=== PATIENT | male | born 1975 | race Caucasian/White ===

== ENCOUNTER 2021-01-11 15:13 | Emergency (ER) | payer OTHER ==
[2021-01-11 15:32] VITALS: BP 163/121; PULSE 64; RESP 16; TEMP 98.6
--- NOTE | 2021-01-11 16:12 | ED ---
General Adult HPI - General Chief complaint: Extremity Problem,Nontraumatic Stated complaint: Back Pain/Leg pain Time Seen by Provider: 01/11/21 15:43 Source: patient, RN notes reviewed Mode of arrival: ambulatory Limitations: no limitations - History of Present Illness Initial comments: 45-year-old male presents to the emergency room for a chief complaint of shocking pain. Patient reports for the past 16 months he has had pain that goes in shock waves throughout his whole body. States it starts in his feet goes up through his body. Patient denies having diabetes. Denies history of neuropathy. Patient has not seen his doctor for this in the past 8 months. Patient has no other complaints at this time including shortness of breath, chest pain, abdominal pain, nausea or vomiting, headache, or visual changes. - Related Data Home Medications Medication Instructions Recorded Confirmed Dextroamphetamine/Amphetamine 20 mg PO BID 09/27/15 09/27/15 [Adderall] Hydrocodone/Acetaminophen [[place] 1 each PO Q6HR PRN 09/27/15 09/27/15 7.5-325] Previous Rx's Medication Instructions Recorded HYDROcodone/APAP 5-325MG [Benton 5] 1 each PO Q6HR PRN #30 tab 09/27/15 Allergies Allergy/AdvReac Type Severity Reaction Status Date / Time No Known Allergies Allergy Verified 01/11/21 15:28 Review of Systems ROS Statement: Those systems with pertinent positive or pertinent negative responses have been documented in the HPI. ROS Other: All systems not noted in ROS Statement are negative. Past Medical History Past Medical History: Hypertension Additional Past Medical History / Comment(s): ADHD History of Any Multi-Drug Resistant Organisms: None Reported Additional Past Surgical History / Comment(s): WRIST LACERATION REPAIR; REPAIR OF HEAD LACERATION; SURGERY TO REPAIR PINCHED NERVE IN LEFT ELBOW; SEPTOPLASTY Past Anesthesia/Blood Transfusion Reactions: No Reported Reaction Past Psychological History: ADD/ADHD Smoking Status: Current every day smoker Past Alcohol Use History: None Reported Past Drug Use History: None Reported General Exam Limitations: no limitations General appearance: alert, in no apparent distress Head exam: Present: atraumatic, normal inspection Eye exam: Present: normal appearance, PERRL, EOMI. Absent: scleral icterus, conjunctival injection ENT exam: Present: normal exam, mucous membranes moist Neck exam: Present: normal inspection, full ROM. Absent: tenderness Respiratory exam: Present: normal lung sounds bilaterally. Absent: respiratory distress, wheezes Cardiovascular Exam: Present: regular rate, normal rhythm, normal heart sounds GI/Abdominal exam: Present: soft, normal bowel sounds. Absent: distended, tenderness, guarding, rebound, rigid Extremities exam: Present: other (Feet appear normal, DP pulses 2+.) Course Vital Signs 01/11/21 15:28 Temperature 98.6 F Pulse Rate 64 Respiratory 16 Rate Blood Pressure 163/121 O2 Sat by Pulse 100 Oximetry Medical Decision Making - Medical Decision Making Patient became frustrated when discussing his chronic pain and eloped from the emergency room. Likely experiencing neuropathy. I discussed this case with attending Dr. Garcia who agrees with this assessment and treatment plan. Disposition Clinical Impression: Neuropathy Disposition: Left Against Medical Advice Is patient prescribed a controlled substance at d/c from ED?: No Time of Disposition: 16:16
== END 2021-01-11 16:18 | disposition left against medical advice (07) ==
LOC: EC 15:13
DX: G62.9 Polyneuropathy, unspecified (principal); F90.9 Attention-deficit hyperactivity disorder, unspecified type; I10 Essential (primary) hypertension; F17.200 Nicotine dependence, unspecified, uncomplicated; Z79.899 Other long term (current) drug therapy; Z53.29 Procedure and treatment not carried out because of patient's decision for other reasons
CPT/HCPCS: 99282

== ENCOUNTER → 2021-02-28 | Outpatient (CLI) | payer OTHER ==
--- NOTE | 2021-02-28 13:49 | MR ---
EXAMINATION TYPE: MR shoulder RT wo con DATE OF EXAM: 02/28/2021 COMPARISON: None HISTORY: Rt shoulder pain TECHNIQUE: Multiplanar, multisequence imaging of the right shoulder is performed without contrast. FINDINGS: Rotator Cuff: Torn supraspinatus tendon is retracted to the level of the acromion, infraspinatus tend on also shows attenuation and partial full-thickness tear at the level of its insertion, there is flu id signal along the subscapularis lesser tendinous junction Acromioclavicular Joint: There is arthropathy change present, fluid is present in the subacromial sub deltoid bursa, there is a distal acromial spur Glenohumeral Joint: There is some motion present however the joint appears intact Labrum: The labrum appears grossly intact given limitation of non-arthrogram study. Biceps Tendon: Dyspnea placed from the bicipital groove, fluid is present along the tendon Bone marrow signal: Subchondral marrow signal changes present at the acromioclavicular joint Other: There is a joint effusion. IMPRESSION: Targeted rotator cuff with retraction, displaced long head of biceps tendon, correlate for impingemen t.
== END | disposition home or self-care (01) ==
LOC: RADMRIMAIN 08:37
PROVIDERS: ATTEND Internal Medicine
DX: M75.101 Unspecified rotator cuff tear or rupture of right shoulder, not specified as traumatic (principal); S46.119A Strain of muscle, fascia and tendon of long head of biceps, unspecified arm, initial encounter

== ENCOUNTER 2021-05-06 15:40 | Emergency (ER) | payer OTHER ==
[2021-05-06 16:01] VITALS: BP 126/79; PULSE 84; RESP 20; TEMP 98.8
--- NOTE | 2021-05-06 16:35 | XR ---
EXAMINATION TYPE: XR wrist complete RT DATE OF EXAM: 05/06/2021 COMPARISON: NONE HISTORY: Pain and swelling TECHNIQUE: 4 views FINDINGS: I see no fracture nor dislocation. Carpal bones are intact. Metacarpals are intact. There a re no erosions. There is no subluxation. IMPRESSION: Negative right wrist exam. No fracture.
--- NOTE | 2021-05-06 16:37 | XR ---
EXAMINATION TYPE: XR hand complete RT DATE OF EXAM: 05/06/2021 COMPARISON: NONE HISTORY: Pain TECHNIQUE: 3 views FINDINGS: Metacarpals are intact. There is mild spurring at the IP joint of the thumb. I see no erosi ons. There is no subluxation. There is no evidence of an acute fracture. IMPRESSION: Minor degenerative changes. No fracture seen.
--- NOTE | 2021-05-06 17:14 | ED ---
Upper Extremity HPI - General Chief Complaint: Extremity Injury, Upper Stated Complaint: rt wrist problem Time Seen by Provider: 05/06/21 17:00 Source: patient Mode of arrival: ambulatory Limitations: no limitations - History of Present Illness Initial Comments: 46-year-old male presents to emergency department with a chief complaint of right wrist pain. States this occurred today while he was painting. He states he felt his hand "lockup" like he was experiencing spasms in the hand. Reports the hand was in a flexed position for about 10 minutes before it gradually resolved. She denies any significant injury to the arm otherwise. He denies any numbness or tingling. States she does not have any symptoms at this time. Denies any paresthesias or weakness. - Related Data Home Medications Medication Instructions Recorded Confirmed Dextroamphetamine/Amphetamine 20 mg PO BID 09/27/15 09/27/15 [Adderall] Hydrocodone/Acetaminophen [[place] 1 each PO Q6HR PRN 09/27/15 09/27/15 7.5-325] Previous Rx's Medication Instructions Recorded HYDROcodone/APAP 5-325MG [Butler 5] 1 each PO Q6HR PRN #30 tab 09/27/15 Allergies Allergy/AdvReac Type Severity Reaction Status Date / Time No Known Allergies Allergy Verified 05/06/21 16:01 Review of Systems ROS Statement: Those systems with pertinent positive or pertinent negative responses have been documented in the HPI. ROS Other: All systems not noted in ROS Statement are negative. Past Medical History Past Medical History: Diabetes Mellitus, Hypertension, Rheumatoid Arthritis (RA) Additional Past Medical History / Comment(s): ADHD History of Any Multi-Drug Resistant Organisms: None Reported Past Surgical History: Orthopedic Surgery Additional Past Surgical History / Comment(s): WRIST LACERATION REPAIR; REPAIR OF HEAD LACERATION; SURGERY TO REPAIR PINCHED NERVE IN LEFT ELBOW; SEPTOPLASTY Past Anesthesia/Blood Transfusion Reactions: No Reported Reaction Past Psychological History: ADD/ADHD Smoking Status: Current every day smoker Past Alcohol Use History: None Reported Past Drug Use History: None Reported General Exam Limitations: no limitations General appearance: alert, in no apparent distress Head exam: Present: atraumatic, normocephalic, normal inspection Eye exam: Present: normal appearance, PERRL, EOMI Pupils: Present: normal accommodation ENT exam: Present: normal exam, normal oropharynx, mucous membranes moist Neck exam: Present: normal inspection, full ROM. Absent: tenderness Respiratory exam: Present: normal lung sounds bilaterally. Absent: respiratory distress, wheezes, rales, rhonchi, stridor, chest wall tenderness, accessory muscle use Cardiovascular Exam: Present: regular rate, normal rhythm, normal heart sounds. Absent: systolic murmur, diastolic murmur Extremities exam: Present: normal inspection, full ROM, normal capillary refill, other (Palpable ulnar and radial pulses bilaterally). Absent: tenderness, pedal edema, joint swelling, calf tenderness Back exam: Present: normal inspection, full ROM. Absent: tenderness, CVA tenderness (R), CVA tenderness (L) Neurological exam: Present: alert, oriented X3 Psychiatric exam: Present: normal affect, normal mood Skin exam: Present: warm, dry, intact, normal color Course Vital Signs 05/06/21 15:56 Temperature 98.8 F Pulse Rate 84 Respiratory 20 Rate Blood Pressure 126/79 O2 Sat by Pulse 96 Oximetry Medical Decision Making - Medical Decision Making 46-year-old male presents to emergency Department with a chief complaint of right arm pain. Physical examination is unremarkable. Patient is neurovascularly intact. X-rays of the hand and wrist are negative. Patient is to follow-up with orthopedics. Return parameters discussed. Case discussed with Disposition Clinical Impression: Right wrist pain Disposition: HOME SELF-CARE Condition: Stable Instructions (If sedation given, give patient instructions): Wrist Injury (ED) Additional Instructions: Please return to the Emergency Department if symptoms worsen or any other concerns. Is patient prescribed a controlled substance at d/c from ED?: No Referrals: Vishal Franco MD [Primary Care Provider] - 1-2 days Time of Disposition: 17:14
== END 2021-05-06 17:19 | disposition home or self-care (01) ==
LOC: EC 15:40
DX: M25.531 Pain in right wrist (principal); E11.9 Type 2 diabetes mellitus without complications; I10 Essential (primary) hypertension; M06.9 Rheumatoid arthritis, unspecified; F17.200 Nicotine dependence, unspecified, uncomplicated
CPT/HCPCS: 99283

== ENCOUNTER 2021-06-09 07:12 | Day surgery (SDC) | payer OTHER ==
--- NOTE | 2021-06-08 09:29 | HP ---
HISTORY AND PHYSICAL CHIEF COMPLAINT: Right shoulder pain. HISTORY OF PRESENT ILLNESS: The patient is a 46-year-old, right-hand dominant, unemployed gentleman who presents with right shoulder pain for the past 16 years. He notes he hurt himself in a tough man contest. He is having pain with overhead use and at night. He notes it has progressed. He has tried previous treatments without much relief. He notes daily pain and limitation. PAST MEDICAL HISTORY: Significant for hypertension and type 2 diabetes. PAST SURGICAL HISTORY: Significant for right hand surgery in addition to previous elbow surgery. CURRENT MEDICATIONS: Diclofenac, Lomita, losartan, and metformin. ALLERGIES: He denies drug allergies. FAMILY HISTORY: Significant for cancer. SOCIAL HISTORY: Significant for current tobacco use. REVIEW OF SYSTEMS: Sixteen-point review of systems otherwise reviewed and is noncontributory. PHYSICAL EXAMINATION: On examination, the patient is approximately 5 foot 7, 225 pounds of endomorphic habitus. HEENT exam is nonfocal. Neck is supple. On examination of his right shoulder, active range of motion forward elevation 150 degrees, external rotation with arm at side 55 degrees, internal rotation to L2. Motor strength is 4+/5 for abduction and external rotation. Impingement test, Neer test, and Speed test are positive. His distal neurovascular exam appears intact in the right upper extremity. MRI report right shoulder 02/28/2021 shows evidence of retracted rotator cuff tear along with biceps dislocation. IMPRESSION: 1. Right shoulder symptomatic rotator cuff tear. 2. Right proximal biceps tendinopathy with dislocation. RECOMMENDATIONS: I talked to the patient at length regarding his condition and treatment options. At this point, he opts to proceed with surgery. We will plan to proceed with arthroscopic evaluation with probable subacromial decompression, rotator cuff repair, and possible biceps tenotomy. We will likely perform that as an outpatient procedure. Risks and benefits were discussed at length in layman's terms. MMODL / IJN: [id number] /
[2021-06-09] MEDS ORDERED: SCOPOLAMINE 1.5MG/72HR PATCH TRANSDERM ONE (07:33)
[2021-06-09] MEDS ORDERED: HYDROmorphone 0.5 MG/0.5 ML SYRINGE IVP PRN (07:33)
[2021-06-09] MEDS ORDERED: MIDAZOLAM 2 MG/2 ML VIAL IV PRN (07:33)
[2021-06-09] MEDS ORDERED: LACTATED RINGERS 1,000 ML IV SCH (07:33)
[2021-06-09] MEDS ORDERED: ONDANSETRON 4 MG/2 ML VIAL ONE (07:50)
[2021-06-09 07:51] LABS: Glucose,Whole Blood 125 mg/dL (75-99)
[2021-06-09] MEDS: DEXAMETHASONE SOD PHOSPHATE 4 MG/ML 1 ML VIAL IV ONE ×2 (08:15→08:30)
[2021-06-09] MEDS: ONDANSETRON 4 MG/2 ML VIAL IVP ONE ×2 (08:15→08:30)
[2021-06-09] MEDS ORDERED: MIDAZOLAM 2 MG/2 ML VIAL IVP ONE (08:20)
[2021-06-09] MEDS ORDERED: fentaNYL (PF) 50 MCG/ML 2 ML AMP IVP ONE (08:22)
--- NOTE | 2021-06-09 08:35 | P.ANPRN ---
Procedure Note - Anesthesia - Nerve Block Performed Right Interscalene Single Time Out Performed: Yes Date of Procedure: 06/09/21 Procedure Start Time: : Procedure Stop Time: : Location of Patient: PreOp Indication: Requested by Surgeon Specifically requested for management of pain by DrConcepción: Gee Dowling Sedation Type: Sedate with meaningful contact maintained Preparation: Sterile Prep Position: Supine Needle Types: Pajunk Needle Gauge: 21 Ultrasound used to visualize needle placement: Yes Ultrasound used to observe medication spread: Yes Injectate: 0.5% Ropivacaine (see comment for volume) (20 ml plus Dexamethason) Blood Aspirated: No Pain Paresthesia on Injection Noted: No Resistance on Injection: Normal Image Stored and Saved: Yes Events: Uneventful and Well Tolerated
[2021-06-09] MEDS ORDERED: PROPOFOL 10 MG/ML 20 ML VIAL IV ONE (09:24)
[2021-06-09] MEDS ORDERED: SUCCINYLCHOLINE CHLORIDE 100 MG/5 ML SYR IV ONE (09:24)
[2021-06-09] MEDS ORDERED: ROPIVACAINE 5 MG/ML 30 ML VIAL ONE (09:24)
[2021-06-09] MEDS ORDERED: LIDOCAINE 1% INJ 10MG/ML (20 ML MDV) ONE (09:24)
[2021-06-09] MEDS ORDERED: MIDAZOLAM 2 MG/2 ML VIAL ONE (09:24)
[2021-06-09] MEDS ORDERED: DEXAMETHASONE SOD PHOSPHATE 4 MG/ML 1 ML VIAL ONE (09:24)
[2021-06-09] MEDS ORDERED: HYDROmorphone (PF) 1 MG/ML ONE (09:24)
[2021-06-09] MEDS ORDERED: fentaNYL (PF) 50 MCG/ML 2 ML AMP ONE (09:24)
[2021-06-09] MEDS ORDERED: DEXAMETHASONE SOD PHOSPHATE 10 MG/ML 1 ML VIAL ONE (09:24)
[2021-06-09] MEDS ORDERED: EPINEPHrine (PF) 1 ML in SODIUM CHLORIDE 0.9% IRRIGATIO 3,000 ML IRRIGATION ONE ×8 (09:29)
[2021-06-09] MEDS ORDERED: LACTATED RINGERS 1,000 ML IV ONE (11:03)
--- NOTE | 2021-06-09 11:32 | P.OP ---
Date of Procedure: 06/09/21 Preoperative Diagnosis: Symptomatic right rotator cuff tear Postoperative Diagnosis: 4 cm rotator cuff tear, high-grade partial-thickness tear/subluxation of the long head of the biceps, acromioclavicular joint arthritis Procedure(s) Performed: Right shoulder arthroscopic subacromial decompression/biceps tenotomy/distal clavicular resection/rotator cuff repair Implants: Arthrex 4.75 mm swivel lock anchor 2, 5.5 mm swivel lock anchor 2 Anesthesia: PERLAA, regional Surgeon: Gee Dowling Reeler Operator #1: Alpesh Silverio Estimated Blood Loss (ml): 10 Pathology: none sent Condition: stable Disposition: PACU Indications for Procedure: The patient's 46-year-old male who presents with a long-standing history of progressive right shoulder pain despite conservative measures. A discussion the risks and benefits of operative intervention versus continued conservative measures was made with patient. He opted to proceed with surgery. Operative risks to include infection, neurovascular injury, development of blood clots, possible incomplete resolution of symptoms, possible tendon rerupture, possible postoperative stiffness and need for subsequent procedures was discussed. Informed consent was obtained. Operative Findings: As below Description of Procedure: The patient was brought to the operating room, and after induction of general anesthesia was placed in a beachchair position. A preoperative interscalene block was placed for postoperative analgesia. I examined the right shoulder. There was no gross block to passive motion or gross glenohumeral instability. The 8 upper extremity was prepped and draped in normal fashion. The bony outlines the acromion, distal clavicle, and coracoid process were outlined with a skin marker. The glenohumeral joint was inflated with 50 mL of saline utilizing a spinal needle from posterior approach. A posterior portal was made through a 5 mm skin incision 1 cm medial and inferior to the posterior lateral border time. A blunt trocar was used to easily into the joint. Diagnostic arthroscopy was performed. An anterior portal was made just lateral to the coracoid process entering the joint above the subscapularis tendon. The subscapularis tendon appeared to be intact. Anterior labrum was intact. The inferior recess was inspected. The posterior labrum was intact. There was a high-grade partial-thickness tear of the long head of the biceps involving interarticular portion, along with medial subluxation. It was elected to proceed with release at this point. This was released from the superior labrum with electrocautery and was allowed to retract to the bicipital groove. On inspection the rotator cuff, a full-thickness tear involving the infraspinatus and supraspinatus with mild retraction was noted. The arthroscope was placed into the subacromial space. A lateral portal was made 2 centimeters inferior to the anterior lateral border of the acromion. The rotator cuff was then mobilized with a traction suture. This was then brought back to the greater tuberosity. The soft tissue on the undersurface of the acromion was debrided with a motorized shaver and electrocautery clearly defining the anterior medial and lateral borders as well as the distal clavicle. An anterior inferior acromioplasty was performed with a motorized maddy starting anterolateral, then extending this posteriorly, then extending this medially. I converted to a flat acromion and this was verified in the posterior and lateral viewing portals. Acromioclavicular joint arthritis along with subacromial impingement was noted therefore the distal 4 mm of clavicle was resected with a motorized bur. The greater tuberosity was lightly decorticating with a shaver down to a bleeding bony surface. An accessory superior lateral portals made just off the lateral edge of the acromion for anchor placement. 2 anchors were then placed just off the articular surface with the appropriate starting awl. 4.75 mm anchors prel oaded with #2 fiber tape were placed. Good purchase was obtained. These fiber tapes were then passed the rotator cuff with a scorpion suture passer. A lateral row was created crisscrossing these tapes. 5.5 mm swivel lock anchors x2 were placed laterally. Good purchase was obtained. Final arthroscopic view showed adequate compression at the footprint. The arthroscope was then removed. The portals were closed with simple 3-0 nylon sutures. A sterile dressing was applied in addition to an abductor brace. The patient was then awoken from general anesthesia and transferred to recovery room in good condition. Blood loss was estimated at 10 mL. No complications were incurred. Sponge and needle counts were correct in the case. Alpesh BOYER assisted and the major components of the case to include arm positioning, anchor placement, and rotator cuff repair.
[2021-06-09 11:41] VITALS: TEMP 97
[2021-06-09 12:18] VITALS: RESP 16
[2021-06-09] MEDS ORDERED: HYDROcodone/APAP 10-325MG 1 EACH TAB ONE (12:38)
[2021-06-09] MEDS ORDERED: HYDROcodone/APAP 10-325MG 1 EACH TAB PO ONE (12:39)
[2021-06-09 13:11] VITALS: BP 142/89; PULSE 75
== END 2021-06-09 13:56 | disposition home or self-care (01) ==
LOC: OR 07:12
PROVIDERS: ATTEND Orthopaedic Surgery
DX: S46.011A Strain of muscle(s) and tendon(s) of the rotator cuff of right shoulder, initial encounter (principal); S43.491A Other sprain of right shoulder joint, initial encounter; X58.XXXA Exposure to other specified factors, initial encounter; M25.511 Pain in right shoulder; I10 Essential (primary) hypertension; E11.8 Type 2 diabetes mellitus with unspecified complications; Z98.890 Other specified postprocedural states; Z80.9 Family history of malignant neoplasm, unspecified; F17.210 Nicotine dependence, cigarettes, uncomplicated; F90.9 Attention-deficit hyperactivity disorder, unspecified type; M06.9 Rheumatoid arthritis, unspecified; K21.9 Gastro-esophageal reflux disease without esophagitis; Z79.84 Long term (current) use of oral hypoglycemic drugs; Z79.891 Long term (current) use of opiate analgesic; Z79.899 Other long term (current) drug therapy
CPT/HCPCS: 64415; 76942; 29826; 29827; C1713 ×3; C1894; J2250; J1100; J0690; J2405; J0171; J2001; J3010; J1170 ×2; J2795; J0330; J2704

== ENCOUNTER → 2022-01-10 | Outpatient (CLI) | payer OTHER ==
--- NOTE | 2022-01-10 11:56 | FL ---
EXAMINATION TYPE: FL barium swallow w video DATE OF EXAM: 01/10/2022 CLINICAL HISTORY: 46 year-old male R13.10, unspecified Dysphagia. Patient with residual sensation of sticking. Reports nasal reflux. TECHNIQUE: Deglutition study is performed utilizing thin liquid barium, honey and nectar thick liqui d barium, barium thick applesauce, and barium coated cracker. Total fluoroscopy time: 1 minute 45 seconds. Total images: None. Real-time fluoroscopy support was provided to speech pathology. COMPARISON: None. FINDINGS: The oral and pharyngeal phases show satisfactory initiation and propagation with all modalities teste d. Normal mastication is seen with solid modalities tested. There is no evidence of penetration or aspiration with any modality tested. There are mild vallecular residuals with solid consistency. The re is degenerative disc disease with anterior endplate spondylosis at C6-C7 that impresses onto the b ack wall of the cervical esophagus causing mild narrowing but no obstruction to any of the consistenc ies tested. IMPRESSION: 1. No penetration or aspiration. 2. Mild vallecular residuals with solid consistency. 3. C6-C7 anterior endplate spondylosis impresses onto the back wall of the cervical esophagus and cau ses mild narrowing but without any obstruction. Please refer to speech therapist notes for further details if necessary.
== END | disposition home or self-care (01) ==
LOC: RADFLMAIN 10:45
PROVIDERS: ATTEND Psychiatry & Neurology Neurology
DX: R13.10 Dysphagia, unspecified (principal); M47.812 Spondylosis without myelopathy or radiculopathy, cervical region
CPT/HCPCS: 74230

== ENCOUNTER 2022-09-14 14:10 | Emergency (ER) | payer OTHER ==
[2022-09-14 14:25] VITALS: TEMP 98.1
[2022-09-14] MEDS ORDERED: HYDROmorphone 0.5 MG/0.5 ML SYRINGE IM STA ×2 (14:40→16:42)
[2022-09-14] MEDS ORDERED: DEXAMETHASONE SOD PHOSPHATE 10 MG/ML 1 ML VIAL IM STA (14:40)
--- NOTE | 2022-09-14 15:07 | XR ---
EXAMINATION TYPE: XR lumbar spine 2 or 3V DATE OF EXAM: 09/14/2022 COMPARISON: None HISTORY: Pain TECHNIQUE: 3 view lumbar spine FINDINGS: There are 5 lumbar-type vertebral bodies. The pedicles are intact. There is mild diffuse na rrowing to the L4-5 disc space. Spondylosis is present at L3 and L4. Mild wedge deformity of L1 is pr esent of indeterminate age. This may have been present on the lateral chest film of 12/09/2021. IMPRESSION: 1. Mild wedge deformity of L1 is most likely old. 2. Mild degenerative disc changes L4-5
[2022-09-14] MEDS ORDERED: CYCLOBENZAPRINE 10 MG TAB PO STA (15:37)
--- NOTE | 2022-09-14 15:43 | ED ---
Back Pain HPI - General Chief Complaint: Back Pain/Injury Stated Complaint: Back Pain Time Seen by Provider: 09/14/22 14:33 Source: patient, family, RN notes reviewed Limitations: no limitations - History of Present Illness Initial Comments: This is a 47-year-old male who presents to the emergency department for lower back pain. States that when he went to get out of bed this morning, he experienced a severe onset of lower back pain. He was unable to walk afterwards, and states that he is experiencing excruciating pain and is hardly able to walk at all. He does have chronic pain in his neck, and follows up with neurology for trigger point injections and epidurals. He does plan to follow up with them early next week. He has never had problems with his lower back like he is today. Denies any loss of bowel or bladder control or saddle anesthesia. He does have problems with neuropathy in his bilateral lower extremities, but is unsure if this is any worse in relation to the pain. Denies any fevers, chills, sore throat, cough, dyspnea, chest pain, palpitations, abdominal pain, nausea, vomiting, diarrhea, or headaches. MD Complaint: back pain Similar Symptoms Previously: No Place: home - Related Data Home Medications Medication Instructions Recorded Confirmed Dextroamphetamine/Amphetamine 20 mg PO BID 09/27/15 06/09/21 [Adderall] Hydrocodone/Acetaminophen [[place] 1 each PO Q6HR PRN 09/27/15 06/09/21 7.5-325] Diclofenac Sodium 50 mg PO DAILY 06/09/21 06/09/21 Losartan [Cozaar] 50 mg PO DAILY 06/09/21 06/09/21 metFORMIN HCL [Glucophage] 500 mg PO TID 06/09/21 06/09/21 Previous Rx's Medication Instructions Recorded HYDROcodone/APAP 10-325MG [[place] 1 tab PO Q6HR PRN #28 tab 06/09/21 10-325] Artificial Tears-Hypromellose 1 drops LEFT EYE TID #20 ml 12/09/21 [Artificial Tear Drops] predniSONE See Taper PO DAILY #40 tab 12/09/21 valACYclovir HCL [Valtrex] 1,000 mg PO TID 10 Days #60 tablet 12/09/21 Lidocaine 5% Oint [Xylocaine 5% 1 applic TOPICAL Q6H PRN #30 gm 09/14/22 Oint] Orphenadrine [Norflex] 100 mg PO Q12H PRN #20 tab 09/14/22 predniSONE 50 mg PO DAILY 5 Days #5 tab 09/14/22 Allergies Allergy/AdvReac Type Severity Reaction Status Date / Time No Known Allergies Allergy Verified 09/14/22 14:25 Review of Systems ROS Statement: Those systems with pertinent positive or pertinent negative responses have been documented in the HPI. ROS Other: All systems not noted in ROS Statement are negative. Past Medical History Past Medical History: Diabetes Mellitus, Hypertension, Rheumatoid Arthritis (RA) Additional Past Medical History / Comment(s): ADHD History of Any Multi-Drug Resistant Organisms: None Reported Past Surgical History: Orthopedic Surgery Additional Past Surgical History / Comment(s): WRIST LACERATION REPAIR; REPAIR OF HEAD LACERATION; SURGERY TO REPAIR PINCHED NERVE IN LEFT ELBOW; SEPTOPLASTY Past Anesthesia/Blood Transfusion Reactions: No Reported Reaction Past Psychological History: ADD/ADHD Smoking Status: Current every day smoker Past Alcohol Use History: None Reported Past Drug Use History: None Reported General Exam Limitations: no limitations General appearance: alert, in distress Head exam: Present: atraumatic, normocephalic, normal inspection Respiratory exam: Present: normal lung sounds bilaterally. Absent: respiratory distress, wheezes, rales, rhonchi, stridor Cardiovascular Exam: Present: regular rate, normal rhythm, normal heart sounds. Absent: systolic murmur, diastolic murmur, rubs, gallop, clicks Back exam: Present: normal inspection. Absent: full ROM (secondary to pain), tenderness Neurological exam: Present: alert, oriented X3, CN II-XII intact Psychiatric exam: Present: normal affect, normal mood Skin exam: Present: warm, dry, intact, normal color. Absent: rash Course Vital Signs 09/14/22 14:23 Temperature 98.1 F Pulse Rate 98 Respiratory 20 Rate Blood Pressure 178/89 O2 Sat by Pulse 99 Oximetry Medical Decision Making - Medical Decision Making This is a 47-year-old male who presents the emergency department for lower back pain. Patient was given IM dilauded and Decadron which he states was beneficial. Lumbar spine x-ray obtained revealing multiple degenerative changes and a wedge deformity of indeterminate age. Given these findings, a computed tomography scan of the lumbar spine was subsequently obtained. This revealed multiple areas of degenerative changes with no acute findings to account for today's symptoms. Current pain is likely related to an acute muscle strain. Prescription for prednisone provided to be taken for 5 days. Norflex prescribed to be taken as needed for pain and muscle spasms. He is instructed to take the first dose at night until he knows how it affects him, as it may be sedating. Lidocaine cream prescribed as well for additional relief, which can be applied 3-4 times daily. Patient is already on daily narcotic pain medication and no additional controlled substances will be prescribed. Also recommended ice or heat for additional relief and reminded him to follow up with neurology for further evaluation and discussion of treatment options. Return precautions reviewed in depth, the patient is instructed to return to the emergency department with any new, worsening, or concerning symptoms, specially develops loss of bowel/bladder control or saddle anesthesia. Patient verbalized understanding. This case was discussed in detail with the attending ED physician. Presentation, findings, and treatment plan discussed in detail as well. - Radiology Data Radiology results: report reviewed, image reviewed Disposition Clinical Impression: Lower back pain Disposition: HOME SELF-CARE Instructions (If sedation given, give patient instructions): Acute Low Back Pain (ED) Additional Instructions: Return to the emergency department with any new, worsening, or concerning symptoms. Take the prednisone daily for 5 days. You can take the Norflex up to twice daily as needed for pain or muscle spasms, take your first dose at night until you know how it affects you, as it may be sedating. The lidocaine cream can be applied up to 4 times daily for additional relief. You can also try applying ice or heat. Make sure to follow up with your neurologist for further management of symptoms. Prescriptions: Orphenadrine [Norflex] 100 mg PO Q12H PRN #20 tab PRN Reason: Pain predniSONE 50 mg PO DAILY 5 Days #5 tab Lidocaine 5% Oint [Xylocaine 5% Oint] 1 applic TOPICAL Q6H PRN #30 gm PRN Reason: Pain Is patient prescribed a controlled substance at d/c from ED?: No Referrals: Virgilio Reza MD [Primary Care Provider] - 1-2 days
--- NOTE | 2022-09-14 16:37 | CT ---
Exam: CT lumbar spine wo con DATE OF EXAM: 09/14/2022 COMPARISON: Radiograph same day HISTORY: 47-year-old male Low back pain, limited ambulation, leg numbness. TECHNIQUE: Contiguous axial scanning of the lumbar spine without IV contrast. Coronal and sagittal re constructions performed. CT DLP: 1317.6 mGycm Automated exposure control for dose reduction was used. FINDINGS: Nonspecific 2.2 cm hypodense lesion anterior midpole right kidney. Ultrasound can further evaluate. Mild multilevel degenerative disc disease with anterior endplate spondylosis and disc bulging. There is some calcified posterior disc bulging at L4-L5 noted which contribute to mild spinal canal narrowi ng. 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 No high-grade spinal canal stenosis is seen. On the left, changes contribute to a mild neuroforaminal stenosis at L4-L5. On the right, changes result in a mild spinal canal stenosis at L4-L5. Vertebral body heights are preserved and alignment is maintained. IMPRESSION: 1. MILD ENDPLATE SPONDYLOSIS AND DEGENERATIVE DISC DISEASE THROUGHOUT. 2. THERE IS A PROMINENT CENTRAL DISC OSTEOPHYTE COMPLEX AT L4-L5 WHICH MILDLY NARROWS THE SPINAL LETTY L AND CONTRIBUTES TO MILD BILATERAL NEURAL FORAMINAL STENOSIS. 3. NO HIGH-GRADE CANAL COMPROMISE OR FORAMINAL STENOSIS IS SEEN BY CT. 4. NONEMERGENT RENAL ULTRASOUND TO FURTHER ASSESS A 2.2 CM LESION MID RIGHT KIDNEY, POSSIBLE CYST.
[2022-09-14 17:03] VITALS: BP 138/88; PULSE 86; RESP 18
== END 2022-09-14 17:03 | disposition home or self-care (01) ==
LOC: EC 14:10
DX: M54.50 Low back pain, unspecified (principal); F17.200 Nicotine dependence, unspecified, uncomplicated; E11.9 Type 2 diabetes mellitus without complications; I10 Essential (primary) hypertension; Z79.84 Long term (current) use of oral hypoglycemic drugs; Z79.899 Other long term (current) drug therapy
CPT/HCPCS: 72100; 72131; 99284; 96372; J1100; J1170

== ENCOUNTER 2023-12-20 05:56 | Day surgery (SDC) | payer OTHER ==
[2023-12-20] MEDS ORDERED: LIDOCAINE 1% (10MG/ML) FOR IV START INTRADERMA PRN (06:06)
[2023-12-20] MEDS ORDERED: LACTATED RINGERS 1,000 ML IV SCH (06:06)
[2023-12-20] MEDS ORDERED: INSULIN ASPART (NovoLOG) 100 UNIT/ML VIAL SQ ONE (06:40)
[2023-12-20 06:49] VITALS: TEMP 97
[2023-12-20] MEDS ORDERED: PROPOFOL 10 MG/ML 20 ML VIAL IV ONE (07:00)
[2023-12-20] MEDS ORDERED: LIDOCAINE 1% INJ 10MG/ML (20 ML MDV) ONE (07:00)
[2023-12-20 07:02] LABS: Glucose,Whole Blood 242 mg/dL (70-110)
--- NOTE | 2023-12-20 07:19 | P.PCN ---
Date of Procedure: 12/20/23 Procedure(s) Performed: BRIEF HISTORY: Patient is a 48-year-old, pleasant, white male scheduled for an upper endoscopy as a part of evaluation of intermittent dysphagia to solids for the last 1 year duration. Recent examined progressively getting worse and has been having trouble with liquids as well as solids and passive regurgitation. He had a modified barium swallow done that showed evidence of cervical spondylosis causing extrinsic compression in the proximal cervical esophagus with mild narrowing.. PROCEDURE PERFORMED: Esophagogastroduodenoscopy with biopsy. PREOPERATIVE DIAGNOSIS: Dysphagia to solids and liquids of 1 year duration. IV sedation per anesthesia. PROCEDURE: After informed consent was obtained, the patient was brought into the endoscopy unit. IV sedation was administered by Anesthesia under continuous monitoring. Initially the Olympus GIF-140 video endoscope was inserted into the mouth. Esophagus intubated without any difficulty. It was gradually advanced into the stomach and duodenum and carefully examined. The bulb and the second part of the duodenum appeared normal. The scope at this time was withdrawn to the stomach, adequately insufflated with air, and upon careful examination, mucosa of the antrum, had mild gastritis and biopsies were done from this area. There was small amount of retained solid food in the stomach suggestive of diabetic gastroparesis. Rest of the body, cardia and the fundus appeared normal. The scope was then withdrawn into the esophagus. The GE junction was located at 39 cm from the incisors. The esophagus appeared normal. There were no erosions or ulcerations seen. The proximal cervical esophagus was carefully examined and no evidence of extrinsic compression, esophageal stricture or Zenker's diverticulum identified. Biopsies were done from the distal esophagus and the patient tolerated the procedure well. IMPRESSION: 1. Normal-appearing esophagus with no evidence of esophagitis or esophageal stricture. No extrinsic compression noted in the proximal esophagus. 2. With retained food in the stomach suggestive of diabetic gastroparesis 3. Mild antral gastritis. RECOMMENDATIONS: The findings of this examination were discussed with the patient as well as his family. He was advised to consider small frequent meals because of diabetic gastroparesis and await biopsy results. Follow up in office in 2 weeks..
[2023-12-20 07:37] VITALS: BP 130/78; PULSE 90; RESP 16
== END 2023-12-20 08:01 | disposition home or self-care (01) ==
LOC: ORWHC2ENDO 05:56
PROVIDERS: ATTEND Internal Medicine Gastroenterology
DX: K29.50 Unspecified chronic gastritis without bleeding (principal); I10 Essential (primary) hypertension; E78.5 Hyperlipidemia, unspecified; E11.9 Type 2 diabetes mellitus without complications; F90.9 Attention-deficit hyperactivity disorder, unspecified type; M19.90 Unspecified osteoarthritis, unspecified site; G25.81 Restless legs syndrome; F17.210 Nicotine dependence, cigarettes, uncomplicated; Z79.85 Long-term (current) use of injectable non-insulin antidiabetic drugs; Z79.51 Long term (current) use of inhaled steroids; Z79.899 Other long term (current) drug therapy; Z79.1 Long term (current) use of non-steroidal anti-inflammatories (NSAID)
CPT/HCPCS: 88305; 88342; 43239; J2001; J2704

== ENCOUNTER 2024-04-18 15:18 | Emergency (ER) | payer OTHER ==
--- NOTE | 2024-04-18 15:30 | ED ---
Neuro HPI - General Chief Complaint: Neuro Symptoms/Deficit Stated Complaint: R side facial drooping for 4 days Time Seen by Provider: 04/18/24 15:27 Source: patient, RN notes reviewed, old records reviewed Mode of arrival: ambulatory Limitations: no limitations - History of Present Illness Is the patient presenting with stroke symptoms?: Yes -: days(s) Initial Comments: This is a 49-year-old male to the ER for evaluation patient presenting with significant weakness to the right side of his face this is noted to be starting 4 days ago. History of Rmoo's palsy with resolution. Patient has mild headache currently but no other complaints Location: right face History of same: Yes Place: home Severity: moderate Quality: weak, numb, tingling Improves With: none Worsens With: none On Anticoagulants: Yes Associated Symptoms: denies other symptoms Treatments Prior to Arrival: none - Related Data Home Medications: Home Medications Medication Instructions Recorded Confirmed Hydrocodone/Acetaminophen [[place] 1 each PO Q8H PRN 09/27/15 12/13/23 7.5-325] Diclofenac Sodium 50 mg PO BID PRN 06/09/21 12/13/23 Losartan [Cozaar] 50 mg PO DAILY 06/09/21 12/13/23 metFORMIN HCL [Glucophage] 500 mg PO TID 06/09/21 12/13/23 Albuterol Inhaler [Ventolin Hfa 1 - 2 puff INHALATION Q6H PRN 12/13/23 12/13/23 Inhaler] Atorvastatin [Lipitor] 40 mg PO DAILY 12/13/23 12/13/23 Dulaglutide [Trulicity] 0.75 mg SQ TH 12/13/23 12/13/23 Ondansetron Odt [Zofran Odt] 4 mg PO Q6H PRN 12/13/23 12/13/23 rOPINIRole HCL [Requip] 0.25 mg PO HS 12/13/23 12/13/23 tiZANidine [Zanaflex] 4 mg PO BID PRN 12/13/23 12/13/23 Previous Rx's Medication Instructions Recorded predniSONE [Deltasone] 60 mg PO DAILY #21 tab 04/18/24 valACYclovir HCL [Valtrex] 1,000 mg PO TID #21 tablet 04/18/24 Allergies/Adverse Reactions: Allergies Allergy/AdvReac Type Severity Reaction Status Date / Time No Known Allergies Allergy Verified 04/18/24 15:25 Review of Systems ROS Statement: Those systems with pertinent positive or pertinent negative responses have been documented in the HPI. ROS Other: All systems not noted in ROS Statement are negative. General Exam Limitations: no limitations General appearance: alert, in no apparent distress Head exam: Present: atraumatic, normocephalic, normal inspection Eye exam: Present: normal appearance, PERRL, EOMI. Absent: scleral icterus, conjunctival injection, periorbital swelling ENT exam: Present: normal exam, mucous membranes moist Neck exam: Present: normal inspection. Absent: tenderness, meningismus, lymphadenopathy Respiratory exam: Present: normal lung sounds bilaterally. Absent: respiratory distress, wheezes, rales, rhonchi, stridor Cardiovascular Exam: Present: regular rate, normal rhythm, normal heart sounds. Absent: systolic murmur, diastolic murmur, rubs, gallop, clicks GI/Abdominal exam: Present: soft, normal bowel sounds. Absent: distended, tenderness, guarding, rebound, rigid Extremities exam: Present: normal inspection, full ROM, normal capillary refill. Absent: tenderness, pedal edema, joint swelling, calf tenderness Back exam: Present: normal inspection Neurological exam: Present: alert, oriented X3, CN II-XII intact Psychiatric exam: Present: normal affect, normal mood Skin exam: Present: warm, dry, intact, normal color. Absent: rash Stroke MDM - NIH Stroke Scale 1a. Level of Consciousness: (0) alert 1b. LOC Questions: (0) answers correctly 1c. LOC Commands: (0) performs tasks correctly 2. Best Gaze: (0) normal 3. Visual: (0) no visual loss 4. Facial Palsy: (3) complete paralysis 5a. Motor Arm Left: (0) no drift 5b. Motor Arm Right: (0) no drift 6a. Motor Leg Left: (0) no drift 6b. Motor Leg Right: (0) no drift 7. Limb Ataxia: (0) absent 8. Sensory: (0) normal 9. Best Language: (1) mild/moderate aphasia 10. Dysarthria: (1) mild/moderate dysarthria 11. Extinction/Inattention: (0) no abnormality - Thrombolytic Inclusion/Exclusion Thrombolytic Exclusion Criteria: Symptom Onset > 4.5 Hours (4 days) - Medical Decision Making 49 male to the ER for evaluation today. Patient presents today for evaluation regards to right-sided facial weakness with positive Romo's palsy on exam. Patient symptoms are unchanged here in the ER but is discharged home Past Medical History Past Medical History: Diabetes Mellitus, GERD/Reflux, Hyperlipidemia, Hypertension, Musculoskeletal Disorder, Osteoarthritis (OA), Rheumatoid Arthritis (RA) Additional Past Medical History / Comment(s): dysphagia w/pills, food etc, neuropathy, restless leg, back & neck pain, abd. pain frequently History of Any Multi-Drug Resistant Organisms: None Reported Past Surgical History: Orthopedic Surgery Additional Past Surgical History / Comment(s): WRIST LACERATION REPAIR; REPAIR OF HEAD LACERATION; SURGERY TO REPAIR PINCHED NERVE IN LEFT ELBOW; SEPTOPLASTY, right shoulder rotator cuff repair Past Anesthesia/Blood Transfusion Reactions: No Reported Reaction, Family History of Problems w/ Anesthesia Additional Past Anesthesia/Blood Transfusion Reaction / Comment(s): father very slow to come around after surg. Past Psychological History: ADD/ADHD Smoking Status: Current every day smoker Past Alcohol Use History: None Reported Past Drug Use History: None Reported Course Vital Signs 04/18/24 04/18/24 15:24 16:42 Temperature 98.7 F 98.6 F Pulse Rate 98 92 Respiratory 18 16 Rate Blood Pressure 161/100 148/92 O2 Sat by Pulse 99 99 Oximetry - Reevaluation(s) Reevaluation #1: 04/18/24 16:38 Records reviewed Reevaluation #2: 04/18/24 16:38 Symptoms unchanged Reevaluation #3: 04/18/24 16:38 Patient informed of results and questions answered Reevaluation #4: Was pt. sent in by a medical professional or institution (, PA, FISH PEDDLER, urgent care, hospital, or longterm...) When possible be specific @ -no Did you speak to anyone other than the patient for history (EMS, parent, family, police, friend...)? What history was obtained from this source @ -no Did you review nursing and triage notes (agree or disagree)? Why? @ -agree Are old charts reviewed (outside hosp., previous admission, EMS record, old EKG, old radiological studies, urgent care reports/EKG's, longterm records)? Report findings @ -yes Differential Diagnosis (chest pain, altered mental status, abdominal pain women, abdominal pain men, vaginal bleeding, weakness, fever, dyspnea, syncope, he adache, dizziness, GI bleed, back pain, seizure, CVA, palpatations, mental health, musculoskeletal)? @ -prior EKG interpreted by me (3pts min.). @ -no X-rays interpreted by me (1pt min.). @ -no CT interpreted by me (1pt min.). @ -no U/S interpreted by me (1pt. min.). @ -no What testing was considered but not performed or refused? (CT, X-rays, U/S, labs)? Why? @ -none What meds were considered but not given or refused? Why? @ -none Did you discuss the management of the patient with other professionals (professionals i.e. , PA, FISH PEDDLER, lab, RT, psych nurse, perinatal social worker, light rail signal technician, teacher, financial aids officer, family service caseworker)? Give summary @ -no Was smoking cessation discussed for >3mins.? @ -no Was critical care preformed (if so, how long)? @ -no Were there social determinants of health that impacted care today? How? (Homelessness, low income, unemployed, alcoholism, drug addiction, transportation, low edu. Level, literacy, decrease access to med. care, senior care, rehab)? @ -none Was there de-escalation of care discussed even if they declined (Discuss DNR or withdrawal of care, Hospice)? DNR status @ -no What co-morbidities impacted this encounter? (DM, HTN, Smoking, COPD, CAD, Cance r, CVA, ARF, Chemo, Hep., AIDS, mental health diagnosis, sleep apnea, morbid obesity)? @ -none Was patient admitted / discharged? Hospital course, mention meds given and route, prescriptions, significant lab abnormalities, going to OR and other pertinent info. @ - 49 male to the ER for evaluation today. Patient presents today for evaluation regards to right-sided facial weakness with positive Room's palsy on exam. Patient symptoms are unchanged here in the ER but is discharged home Discharge Undiagnosed new problem with uncertain prognosis? @ -no Drug Therapy requiring intensive monitoring for toxicity (Heparin, Nitro, Insulin, Cardizem)? @ -no Were any procedures done? @ -no Diagnosis/symptom? @ -L's palsy Acute, or Chronic, or Acute on Chronic? @ -Acute Uncomplicated (without systemic symptoms) or Complicated (systemic symptoms)? @ -Complicated Side effects of treatment? @ -no Exacerbation, Progression, or Severe Exacerbation? @ -exacerbation Poses a threat to life or bodily function? How? (Chest pain, [place], NH, pneumonia, PE, COPD, DKA, ARF, appy, cholecystitis, CVA, Diverticulitis, Homicidal, Suicidal, threat to staff... and all critical care pts) @ -no Reevaluation #5: Differential CVA Ischemic stroke, hemorrhagic stroke, brain tumor, atypical migraine, Wernicke's encephalopathy, seizure, multiple sclerosis, meningitis, encephalitis, hypoglycemia, Guillain-Jacob, electrolytes disturbance, myasthenia gravis.... This is not meant to be an all-inclusive list Disposition Clinical Impression: Romo's palsy Disposition: HOME SELF-CARE Condition: Fair Instructions (If sedation given, give patient instructions): Romo Palsy (ED) Prescriptions: predniSONE [Deltasone] 60 mg PO DAILY #21 tab valACYclovir HCL [Valtrex] 1,000 mg PO TID #21 tablet Is patient prescribed a controlled substance at d/c from ED?: No Referrals: Mandy Zavala [Primary Care Provider] - 1-2 days Time of Disposition: 16:00
[2024-04-18] MEDS: dexAMETHasone 2 MG TAB PO STA (16:28)
[2024-04-18] MEDS: IBUPROFEN 600 MG STARTER PACK 4 TAB BTL PO STA (16:29)
[2024-04-18] MEDS: traMADol 50 MG TAB PO STA (16:29)
[2024-04-18] MEDS: traMADol 50 MG STARTER PACK 3 TAB BTL PO STA (16:30)
[2024-04-18] MEDS: valACYclovir HCL 1,000 MG TABLET PO STA (16:34)
[2024-04-18 16:51] VITALS: BP 148/92; PULSE 92; RESP 16; TEMP 98.6
== END 2024-04-18 16:41 | disposition home or self-care (01) ==
LOC: EC 15:18
DX: G51.0 Bell's palsy (principal); F17.200 Nicotine dependence, unspecified, uncomplicated
CPT/HCPCS: 99284; J8540

== ENCOUNTER → 2024-05-08 | Outpatient (CLI) | payer OTHER ==
--- NOTE | 2024-05-09 07:37 | MR ---
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 TECHNIQUE: Multi planar, multi sequence imaging was performed through the brain including: T1, T2, In version recovery, Diffusion weighted imaging, and gradient echo imaging. No gadolinium was given. FINDINGS: Facial nerves are grossly unremarkable given lack of IV contrast. The pritchett-white junctions, ventricular system, basal cisterns appear unremarkable. Scattered foci of high T2 signal intensity are seen within the periventricular white matter. Midline structures show n o abnormality. Diffusion-weighted imaging shows no evidence of restricted diffusion. The susceptibili ty weighted images do not reveal any evidence for micro-hemorrhage. The bone marrow signal is within normal limits. Paranasal sinuses and mastoid air cells: High T2 low T1 signal focus within the right mastoid air josé ls likely representing fluid. Visualized orbits: Orbital contents are intact. IMPRESSION: 1. No evidence of intracranial mass or acute/subacute infarct. 2. Evaluation of the facial nerves is limited without oral contrast. 3. Scattered nonspecific white matter changes.
== END | disposition home or self-care (01) ==
LOC: RADMRIMAIN 13:27
PROVIDERS: ATTEND Student in an Organized Health Care Education/Training Program
DX: G51.0 Bell's palsy (principal)
CPT/HCPCS: 70551